=== PATIENT | male | born 1980 | race Caucasian/White ===

== ENCOUNTER 2016-07-02 07:22 | Emergency (ER) | payer OTHER ==
--- NOTE | 2016-07-02 07:48 | UC ---
Lower Extremity/Ankle HPI - HPI Summary HPI Summary: 5 DAYS OF LATERAL RIGHT FOOT PAIN AND MILD SWELLING. NO TRAUMA OR INJURY HE CAN REMEMBER. HAS BEEN UP ON HIS FEET A LOT OVER THE PAST WEEK. FEELS WORSE AT THE END OF THE DAY. - History of Current Complaint Chief Complaint: UCLowerExtremity Stated Complaint: FOOT INJURY Time Seen by Provider: 07/02/16 07:33 Hx Obtained From: Patient Onset/Duration: Gradual Onset, Lasting Days, Still Present Severity Initially: Moderate Severity Currently: Moderate Pain Intensity: 5 Pain Scale Used: 0-10 Numeric Aggravating Factor(s): Standing, Ambulation Alleviating Factor(s): Rest Able to Bear Weight: Yes - Allergies/Home Medications Allergies/Adverse Reactions: Allergies Allergy/AdvReac Type Severity Reaction Status Date / Time No Known Allergies Allergy Verified 09/30/14 22:01 Home Medications: Home Medications Carbidopa/Levodop 25/100 MG(*) [Sinemet 25/100 TAB(*)] 1 tab PO TID 07/02/16 [ History Confirmed 07/02/16] PMH/Surg Hx/FS Hx/Imm Hx - Additional Past Medical History Additional PMH: PARKINSONS Endocrine History Of: Denies: Diabetes, Thyroid Disease Cardiovascular History Of: Denies: Cardiac Disorders, Hypertension Respiratory History Of: Denies: COPD, Asthma GI/ History Of: Denies: Ulcer - Surgical History Surgical History: Yes Surgery Procedure, Year, and Place: right ankle fracture - Family History Known Family History: Negative: Hypertension Family History: HIGH CHOLESTEROL - Social History Alcohol Use: Weekly Substance Use Type: None Smoking Status (MU): Never Smoked Tobacco Review of Systems Constitutional: Negative Skin: Negative Respiratory: Negative Cardiovascular: Negative Gastrointestinal: Negative Musculoskeletal: Arthralgia, Edema All Other Systems Reviewed And Are Negative: Yes Physical Exam Triage Information Reviewed: Yes Appearance: Well-Appearing, No Pain Distress, Well-Nourished Vital Signs: Initial Vital Signs Temp 98.8 F 07/02/16 07:33 Pulse 97 07/02/16 07:33 Resp 18 07/02/16 07:33 BP 134/92 07/02/16 07:33 Pulse Ox 97 07/02/16 07:33 Vital Signs Reviewed: Yes Eyes: Positive: Conjunctiva Clear ENT: Positive: Hearing grossly normal Neck: Positive: Supple Respiratory: Positive: No respiratory distress, No accessory muscle use Cardiovascular: Positive: Pulses Normal - 2+ DP PULSES Abdomen Description: Positive: Soft Musculoskeletal: Positive: ROM Intact, Edema @ - MILD EDEMA RIGHT FOOT LATERALLY , Other: - TTP RIGHT FOOT OVER 4TH AND 5TH METATARSALS Neurological: Positive: Alert Psychological: Positive: Age Appropriate Behavior Skin: Negative: rashes Diagnostics - Radiology RIGHT FOOT XRAY Xray Interpretation: Positive (See Comments) - NONDISPLACED FRACTURE OF THE PROXIMAL FIFTH METATARSAL Radiology Interpretation Completed By: Radiologist Lower Extremity Course/Dx - Course Course Of Treatment: PT PUT IN CAM BOOT AND GIVEN CRUTCHES. NO WEIGHT BEARING. FOLLOW-UP ORTHO IN 3-5 DAYS - Differential Dx/Diagnosis Provider Diagnoses: NONDISPLACED FRACTURE OF THE PROXIMAL FIFTH METATARSAL Discharge - Discharge Plan Condition: Stable Disposition: HOME Patient Education Materials: Foot Fracture in Adults (ED) Referrals: Micheal Park MD [Medical Doctor] - 3 Days (FOLLOW-UP IN 3-5 DAYS) Justo Miller MD [Primary Care Provider] - If Needed Additional Instructions: YOU HAVE FRACTURED YOUR 5TH METATARSAL. NO WEIGHT BEARING UNTIL SEEN BY ORTHO. CALL TODAY FOR A FOLLOW-UP APPT IN 3-5 DAYS.
--- NOTE | 2016-07-02 08:08 | RAD ---
HISTORY: Lateral pain, right foot COMPARISONS: None VIEWS: 3, Frontal, lateral, and oblique views of the right foot FINDINGS: BONE DENSITY: Normal. BONES: There is a nondisplaced transverse fracture of the proximal fifth metatarsal JOINTS: There is no arthropathy. ALIGNMENT: There is no dislocation. SOFT TISSUES: Unremarkable. OTHER FINDINGS: None. IMPRESSION: NONDISPLACED FRACTURE OF THE PROXIMAL FIFTH METATARSAL
[2016-07-02 08:54] VITALS: BP 138/78
== END 2016-07-02 08:54 | disposition home or self-care (01) ==
LOC: UCEAST 07:22
DX: S92.354A Nondisplaced fracture of fifth metatarsal bone, right foot, initial encounter for closed fracture (principal); X58.XXXA Exposure to other specified factors, initial encounter; Y93.9 Activity, unspecified; Y92.9 Unspecified place or not applicable
CPT/HCPCS: 99211; G0463

== ENCOUNTER 2017-05-15 15:52 | Emergency (ER) | payer OTHER ==
[2017-05-15 16:20] VITALS: BP 127/59
--- NOTE | 2017-05-15 17:13 | UC ---
Abdominal Pain Male HPI - HPI Summary HPI Summary: 36 yo Wm c/o right upper back/flank tenderness x 3-4 days, remininscient of the usual renal colic pt had in the past. Pt has been stressed this week and not drinking enough water. Denies hematuria. f/c - History of Current Complaint Chief Complaint: UCBackPain Stated Complaint: BACK PAIN Time Seen by Provider: 05/15/17 16:45 Hx Obtained From: Patient Onset/Duration: Sudden Onset Severity Initially: Moderate Severity Currently: Moderate Pain Intensity: 4 - Allergies/Home Medications Allergies/Adverse Reactions: Allergies Allergy/AdvReac Type Severity Reaction Status Date / Time No Known Allergies Allergy Verified 05/15/17 16:03 PMH/Surg Hx/FS Hx/Imm Hx - Additional Past Medical History Additional PMH: parkinson's - Surgical History Surgical History: Yes Surgery Procedure, Year, and Place: right ankle fracture 1999 - Family History Known Family History: Negative: Hypertension Family History: HIGH CHOLESTEROL - Social History Alcohol Use: Weekly Substance Use Type: None Smoking Status (MU): Never Smoked Tobacco Review of Systems Constitutional: Negative Skin: Negative Eyes: Negative ENT: Negative Respiratory: Negative Cardiovascular: Negative Gastrointestinal: Negative Genitourinary: Negative Motor: Negative Neurovascular: Negative Musculoskeletal: Negative Neurological: Other - movement disorder secondary to Parkinson's more pronounced due to today's complaints per pt Psychological: Negative All Other Systems Reviewed And Are Negative: Yes Physical Exam Triage Information Reviewed: Yes Vital Signs: Initial Vital Signs Temp 36.3 C 05/15/17 16:05 Pulse 79 05/15/17 16:05 Resp 20 05/15/17 16:05 BP 127/59 05/15/17 16:05 Pulse Ox 98 05/15/17 16:05 Eye Exam: Normal ENT Exam: Normal Dental Exam: Normal Neck exam: Normal Neck: Positive: 1 Respiratory Exam: Normal Cardiovascular Exam: Normal Abdominal Exam: Normal Musculoskeletal Exam: Other - generalized hypertonic choreic movements Neurological Exam: Normal Psychological Exam: Normal Skin Exam: Normal Abd Pain Male Course/Dx - Course Course Of Treatment: UA neg, no blood, LE or nitrites - Differential Dx/Clinical Impression Provider Diagnoses: renal colic Discharge - Discharge Plan Condition: Stable Disposition: HOME Patient Education Materials: Renal Colic (ED) Referrals: Justo Miller MD [Primary Care Provider] - Additional Instructions: if flank pain worsens in spite of hydration and OTC analgesics, then go to ER for advanced imaging
== END 2017-05-15 17:10 | disposition home or self-care (01) ==
LOC: UCEAST 15:52
DX: N23 Unspecified renal colic (principal); G20 Parkinson's disease
CPT/HCPCS: 81003; 99211; G0463

== ENCOUNTER 2018-05-13 05:42 | Observation (INO) | payer OTHER ==
[2018-05-13] MEDS ORDERED: NS 0.9% 1000 ML** 1,000 ML IV ONE ×2 (06:09→07:36)
--- NOTE | 2018-05-13 06:10 | ED ---
Complex/Multi-Sys Presentation - HPI Summary HPI Summary: Pt. is a 37 y.o male who presents to the ER with a history of Parkinson's disease. Pt. follows with Dr. Redding at [place]. Pt. states that last night he fell asleep watching basketball and forgot to take his carbidopa/ levadopa. Pt. states while asleep he had vivid dreams and woke up thrashing. Pt. states this happened twice which is unusual for him. Pt. states he did strike his head on the door frame when on the floor but denies LOC. Pt. also notes he is going through a lot of stress right now and notes his divorce is finalized today. Pt. otherwise denies recent illness, cough, fever, V/D, urinary sxs. Sxs are moderate in severity. No current modifying factors. He does note right shoulder pain after playing baseball a few days ago. Denies any new injuries today. - History Of Current Complaint Chief Complaint: EDHeadInjury Time Seen by Provider: 05/13/18 05:47 Hx Obtained From: Patient - Allergies/Home Medications Allergies/Adverse Reactions: Allergies Allergy/AdvReac Type Severity Reaction Status Date / Time No Known Allergies Allergy Verified 05/13/18 09:26 Home Medications: Home Medications Carbidopa/Levodopa 36.25-145mg [Rytary ER 36.25 mg-145 mg Cap] 23.75 mg PO QID 05/13/18 [History Confirmed 05/13/18] Carbidopa/Levodopa ODT(NF) [Carbidopa/Levodopa ODT (NF)] 1 - 3 tab PO QID PRN [History Confirmed 05/13/18] Multivitamin with Minerals [One Daily Complete] 1 tab PO DAILY 05/13/18 [ History Confirmed 05/13/18] Rasagiline Mesylate 1 mg PO DAILY 05/13/18 [History Confirmed 05/13/18] Ropinirole HCl [Requip Xl] 16 mg PO DAILY 05/13/18 [History Confirmed 05/13/18] Rosuvastatin Calcium 10 mg PO DAILY 05/13/18 [History Confirmed 05/13/18] Tadalafil 10 - 20 mg PO DAILY PRN 05/13/18 [History Confirmed 05/13/18] PMH/Surg Hx/FS Hx/Imm Hx Previously Healthy: Yes Endocrine/Hematology History: Denies: Hx Diabetes, Hx Thyroid Disease Cardiovascular History: Denies: Hx Hypertension Respiratory History: Denies: Hx Asthma, Hx Chronic Obstructive Pulmonary Disease (COPD) GI History: Denies: Hx Ulcer - Surgical History Surgery Procedure, Year, and Place: right ankle fracture 1999 Infectious Disease History: No Infectious Disease History: Denies: Hx Hepatitis, Hx Human Immunodeficiency Virus (HIV), Traveled Outside the [place] in Last 30 Days - Family History Known Family History: Negative: Hypertension Family History: HIGH CHOLESTEROL - Social History Occupation: Employed Full-time Lives: Alone Alcohol Use: Weekly Substance Use Type: Reports: None Smoking Status (MU): Never Smoked Tobacco Review of Systems Constitutional: Negative Negative: Fever, Chills Eyes: Negative ENT: Negative Cardiovascular: Negative Respiratory: Negative Gastrointestinal: Negative Positive: Other - right shoulder pain Positive: Syncope - dyskinesia All Other Systems Reviewed And Are Negative: Yes Physical Exam Triage Information Reviewed: Yes Vital Signs On Initial Exam: Initial Vitals Temp Pulse Resp BP Pulse Ox 99.2 F 109 20 135/74 98 05/13/18 05:44 05/13/18 05:44 05/13/18 05:44 05/13/18 05:44 05/13/18 05:44 Vital Signs Reviewed: Yes Appearance: Positive: Well-Appearing - Pt. lying in bed in NAD. No dyskinesia Skin: Positive: Warm, Dry Head/Face: Positive: Normal Head/Face Inspection Eyes: Positive: Normal, EOMI ENT: Positive: Pharynx normal, TMs normal Neck: Positive: Supple, Nontender Respiratory/Lung Sounds: Positive: Clear to Auscultation, Breath Sounds Present Cardiovascular: Positive: Normal, RRR Musculoskeletal: Positive: Other - healing ecchymosis to bilateral LEs. Mild pain to anterior right shoulder with full ROM. Neurological: Positive: Normal, CN Intact II-III Psychiatric: Positive: Affect/Mood Appropriate Diagnostics - Vital Signs Vital Signs Temp Pulse Resp BP Pulse Ox 05/13/18 05:44 99.2 F 109 20 135/74 98 - Laboratory Result Diagrams: 05/13/18 06:25 05/13/18 06:24 Lab Statement: Any lab studies that have been ordered have been reviewed, and results considered in the medical decision making process. Complex Multi-Symp Course/Dx Course Of Treatment: Pt. presenting for worsening dyskinesia after missing dose of carbidopa/levodopa. Mildly tachycardic but VS otherwise normal. Will start pt. on IV fluids and check basic labs. Pt. took his med around 0700 here. ECG done at 0623 shows a sinus rhythm of 93bpm, normal axis, no ST elevation or depression. CBC shows mild leukocytosis of 12. CR elevatd at 1.36, BUN 30, GFR 58, AST 266. U/A was positive for RBCs and protein. 0735: CK was then ordered to evaluate for rhabdomyolysis. Pt. given 2 L NSS. CK came back at 14,276. Will admit for rhabdomyolysis and rehydration. Hospitalist consulted, Dr. Gutierrez , who accepts admission. He would like pt. started on 250cc/hour. CKMB 68.8, troponin 0.04. - Diagnoses Provider Diagnoses: Rhabdomyolysis, Parkinson disease, Acute kidney injury Discharge - Sign-Out/Discharge Documenting (check all that apply): Patient Departure Patient Received Moderate/Deep Sedation with Procedure: No - Discharge Plan Condition: Stable Disposition: ADMITTED TO [facility] - Billing Disposition and Condition Condition: STABLE Disposition: Admitted to [facility]
[2018-05-13 06:29] LABS: ABS Basophils 0 10^3/ul (0-0.2); ABS Eosinophils 0 10^3/ul (0-0.6); ABS Lymphocytes 0.8 10^3/ul (1.0-4.8); ABS Monocytes 0.8 10^3/ul (0-0.8); ABS Neutrophils 10.5 10^3/ul (1.5-7.7); ABS Nucleated RBC 0 10^3/ul; Eosinophil % 0.1 %; Hematocrit 44 % (42-52); Hemoglobin 14.3 g/dl (14.0-18.0); Lymphocyte % 6.3 %; Mean Corpuscular HGB Conc 33 g/dl (31-36); Mean Corpuscular Hemoglobin 29 pg (27-31); Mean Corpuscular Volume 88 fL (80-94); Mean Platelet Volume 9.4 fL (7.4-10.4); Nucleated Red Blood Cells % 0; Platelet Count 223 10^3/ul (150-450); Red Blood Count 4.98 10^6/ul (4.00-5.40); Red Cell Distribution Width 13 % (10.5-15); White Blood Count 12.1 10^3/ul (3.5-10.8)
[2018-05-13 06:46] LABS: Albumin 4.2 g/dL (3.2-5.2); Albumin/Globulin Ratio 1.6 (1-3); BUN/Creatinine Ratio 22.1 (8-20); EGFR Non-African American 58.6 (>60); Globulin 2.7 g/dL (2-4); Magnesium 2.2 mg/dL (1.9-2.7); Total Bilirubin 0.9 mg/dL (0.2-1.0); Total Protein 6.9 g/dL (6.4-8.9)
[2018-05-13 07:23] LABS: Urine Appearance Cloudy; Urine Bacteria Absent (Absent); Urine Bilirubin Negative (Negative); Urine Blood 2+ (Negative); Urine Color Amber; Urine Glucose Negative (Negative); Urine Ketones 1+ (Negative); Urine Nitrite Negative (Negative); Urine Protein 2+(100 mg/dL) (Negative); Urine Red Blood Cell 3+(>10/hpf) (Absent); Urine Specific Gravity 1.032 (1.010-1.030); Urine Urobilinogen Negative (Negative); Urine White Blood Cell Trace(0-5/hpf) (Absent)
[2018-05-13] MEDS ORDERED: NS 0.9% 250 ML* 250 ML IV ONE (08:43)
[2018-05-13 09:08] LABS: CKMB ng/mL 68.8 ng/mL (0.6-6.3)
[2018-05-13 09:14] LABS: Troponin I 0.04 ng/mL (<0.04)
[2018-05-13] MEDS ORDERED: Acetaminophen TAB* 325 MG PO PRN (10:04)
[2018-05-13] MEDS ORDERED: Ondansetron INJ* 2 MG/ML VIAL IV PRN (10:04)
[2018-05-13] MEDS ORDERED: LORazepam INJ* 2 MG/ML 1 ML VIAL IV PUSH ONE (10:17)
[2018-05-13 10:34] LABS: Phosphorus 2.4 mg/dL (2.5-5.0)
[2018-05-13] MEDS: NS 0.9% 1000 ML** 1,000 ML IV SCH ×3 (10:54→20:25)
--- NOTE | 2018-05-13 12:40 | HP ---
HISTORY AND PHYSICAL: DATE OF ADMISSION: 05/13/18 PRIMARY CARE PROVIDER: Dr. Justo Miller. MY ATTENDING WHILE IN THE HOSPITAL: Dr. Fab Gutierrez.* (DICTATED BY CHRISTIN SAHU) OUTPATIENT NEUROLOGIST: Dr. Redding in [facility] in [place]. CONSULTING NEUROLOGIST: Dr. Pancho Nance. CHIEF COMPLAINT: Dyskinesia. HISTORY OF PRESENT ILLNESS: Mr. Mohr is a 37-year-old male with past medical history significant only for Parkinson's and hyperlipidemia who presents to the emergency department because last night he fell asleep while watching a basketball game and missed his dose of Rytary. Patient at that time was rather dyskinetic and feels like he has been under quite a bit of stress, which usually exacerbates his underlying movement disorder with his Parkinson' s. Patient then that night had very vivid dreams where he felt like the heat in his apartment was way too high and he is usually able to, when he has episodes like this, soothe himself out of them, but he was unable to do so at this time. Patient was barely able to walk due to the severity of his dyskinesias. Patient over the last several days has not been drinking or eating well, has been under a lot of stress. His divorce is finalized today and his work, he feels, is very stressful for him. Patient has no other associated symptoms such as pain with urination, abdominal pain, or diarrhea. Patient has been making adequate amounts of urine. Patient did not pass out. Patient is not having any chest pain. Patient was eventually able to get to a fire alarm in his building and pull it because he had no other way of getting to the emergency department. Patient feels like he has been undertreated particularly at night for his Parkinson's because he feels like his dyskinesias are worse at that time. Patient this morning took his Rytary, Azilect, and ropinirole, which he felt did not help with his dyskinesia. Patient during the interview has significant dyskinesias still and is unable to lie still in the bed. Patient also feels significant cramping in his feet. Patient complains of significant foot cramping pain, which he has frequently. It is usually resolved with foot baths. Patient has not had any recent changes in his medication. Patient in the emergency department has creatine kinase of 14,000 and had slightly elevated creatinine. Due to these concerns, we were asked to evaluate the patient for admission to the hospital. PAST MEDICAL HISTORY: Parkinson disease and hyperlipidemia. MEDICATIONS: 1. Rytary 36.25/145 one tab p.o. 4 times a day. 2. Ropinirole XL 16 mg p.o. daily. 3. Rosuvastatin 10 mg p.o. daily. 4. Multivitamin 1 tab p.o. daily. 5. Azilect 2 mg p.o. daily. ALLERGIES: No known drug allergies. FAMILY HISTORY: Patient's parents are alive and well. Patient's grandparents on both sides of heart disease. SOCIAL HISTORY: Patient never smoked. Patient drinks occasional alcohol. Patient never used illicit drugs. 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 Patient is and has 1 child. Patient 's surrogate decision maker will be his now ex-, Brooke Mohr. REVIEW OF SYSTEMS: A 14-point review of systems was reviewed and is negative, except as above in the HPI. PHYSICAL EXAMINATION GENERAL: Patient is a 37-year-old male who appears stated age, sitting on the bed with constant thrashing movements. VITAL SIGNS: Temperature 99.4, pulse rate 104, respiratory rate 95% on room air , and blood pressure 117/64. HEENT: Head normocephalic and atraumatic. Sclerae anicteric. No conjunctival injection. Nasal mucosa moist. Oral mucosa moist. No oropharyngeal erythema, discharge, or exudate. NECK: Supple and nontender. No lymphadenopathy. No carotid bruits auscultated. No JVD. RESPIRATORY: Clear to auscultation bilaterally. No wheezes, rales, or rhonchi. Good air exchange bilaterally. CARDIAC: Regular rate and rhythm. No clicks, murmurs, gallops, or rubs. Pulses are 2+ in the dorsalis pedis, posterior tibialis and radial areas. ABDOMEN: Soft, nontender, and nondistended. Bowel sounds present and normoactive in all 4 quadrants. No hepatosplenomegaly. No abdominal bruits auscultated. No hepatojugular reflux. GENITOURINARY: No suprapubic or CVA tenderness. SKIN: Clean, dry, and intact. No rash. Bruising all over the patient's body. NEUROLOGIC: Cranial nerves II through XII intact. No focal deficits. Patient has constant thrashing motions in both his upper and lower extremities and his head which are able to be controlled with concentration and worse when patient is occupied. PSYCHIATRIC: Pleasant and cooperative. DIAGNOSTIC STUDIES/LAB DATA: Laboratory Data: White blood cell count 12.1, hemoglobin 14.3, platelet count 223. Sodium 140, potassium 4.0, chloride 105, carbon dioxide 25, anion gap 10, BUN 30, creatinine 1.36, glucose 177, calcium 9.0, magnesium 2.2, bilirubin 0.9, AST 266, ALT 20, alkaline phosphatase 86. Creatine kinase 14,276. CK-MB 68.8, troponin I of 0.04. Total protein 6.9, albumin 4.2, globulin 2.7. Urine gus, cloudy, pH of 9.0, specific gravity of 1.032, protein 2+, ketones 1+, blood 2+. Negative nitrite, leukocyte esterase, white blood cells; rbc's 3+, bacteria absent, hyaline cast present, glucose negative. STUDIES: EKG shows sinus tachycardia. No ST-segment abnormalities. Normal axis. Rate of 66, QTc of 436. No hypertrophy or enlargement. ASSESSMENT AND PLAN: Impression: Mr. Mohr is a 37-year-old male with past medical history significant for Parkinson's who is on significant treatment for this and has had worsening of his dyskinesia with a missed dose of his Parkinson disease medication last night. Patient is currently in severe rhabdomyolysis with acute kidney injury. Patient will be hydrated aggressively , monitored closely, and will be seen by neurology for consultation with regards to his medication management. 1. Rhabdomyolysis. Patient's creatine kinase is over 14,000. We will stop patient's statin. Patient has already received 2.5 L of fluid in the emergency department. Patient will be continued on fluids at 250 mL an hour. Patient's creatinine is 1.36; this will be monitored closely. Patient's most recent baseline is 1.1 from 2010. Patient's urine pH is at 5.0. We will monitor this as needed. If there is concern for worsening acute kidney injury, alkalization of the urine could occur at that time. Patient will be given Ativan at this time to help with his dyskinetic movements to help decrease the severity of his rhabdomyolysis. 2. Acute kidney injury. Management as above. We will monitor closely with a repeat creatinine this afternoon. 3. Parkinson disease. This patient will be discussed with neurology, who will see the patient in consultation. It is believed he might be overtreated for his Parkinson disease as he is having dyskinetic movements and not hypokinesis and tremor. Patient received his dose of Rytary, Azilect, and ropinirole this morning. We will decrease the dose of ropinirole, hold the Azilect, and hold Rytary until seen by neurology. We will attempt to obtain records from patient' s neurologist in [place]. It is likely the amount of patient's stress in his life is exacerbating his movement disorder. 4. DVT prophylaxis. Patient is at low risk. Patient will be treated with SCDs. 5. FEN. Patient will have fluids at 250 mL an hour and a heart-healthy diet without caffeine. DISPOSITION: Patient will be admitted for observation. TIME SPENT: Approximately 75 minutes were spent on the admission of this patient, 30 of which were spent [id number] with the patient obtaining history and physical and discussing treatment plan. The plan was discussed with my attending, Dr. Fab Gutierrez; he is in agreement. CHRISTIN SAHU [id number]/CPS #: [id number] MTDJose Luis
[2018-05-13] MEDS ORDERED: CARBIDOPA PO SCH (13:00)
[2018-05-13] MEDS ORDERED: LEVODOPA PO SCH (13:00)
[2018-05-13 15:52] LABS: EGFR African American 115.8 (>60); EGFR Non-African American 95.7 (>60)
[2018-05-13 15:54] LABS: Troponin I 0.03 ng/mL (<0.04)
[2018-05-13 16:32] LABS: TSH (Thyroid Stimulating Horm) 1.4 mcIU/mL (0.34-5.60)
[2018-05-13 16:34] LABS: Free T4 0.71 ng/dL (0.61-1.12)
--- NOTE | 2018-05-13 17:35 | CONS ---
NEUROLOGY CONSULTATION: DATE OF CONSULT: 05/13/18 REFERRING PHYSICIAN: CHRISTIN Diaz LOCATION: He is an inpatient and he is in room 411. CHIEF COMPLAINT: Parkinson disease, dyskinesias. HISTORY OF PRESENT ILLNESS: Lucien Mohr is a 37-year-old man who began having problems with rigidity and slowness of movement at about 29 years of age and was diagnosed with idiopathic Parkinson disease. He has been treated by a neurologist down in the [facility]. He takes Rytary containing 95 mg of levodopa 3 tablets 3 times a day, Sinemet 25/100 one tablet t.i.d. as a rescue medication as needed, rasagiline 1 mg a day, Requip extended release 16 mg per day. He was in his usual state of health yesterday and took his medication in the morning. He was going to watch a basketball game in the evening and fell asleep. He woke up with severe dyskinesias. He remembers waking up on the floor and trashing about. He remembers going to other condominium owners in his floor and asking for help to get some water. He could not get any response and became quite angry. This morning, he finally pulled the fire alarm and that was how he was able to get first responders come and bring him to the hospital. In the emergency room, he was noted to have an elevated creatine kinase at 14,276 and an elevated creatinine of 1.36. He was given IV fluids and admitted. He believes that he took his medications regularly, but then when he fell asleep did not take his evening dose. He thinks he probably took a dose early in the afternoon or late morning. He does get end of dose wearing off dyskinesias as well as peak dose dyskinesias. He says he has never had anything like this happen before. He had not been ill recently. Specifically, he has not had any nausea, vomiting, diarrhea, or other gastrointestinal problems. He felt extremely hot and overheated last night in his condominium. He says it was probably over 80 degrees. He does not think that he had anything to eat for dinner and he is pretty sure he was not keeping up on fluids. Other than falling asleep and not taking his evening medications as he normally would , he otherwise took his medicines as before. He has been on a statin and he has been on that for years. There has been no change in doses of any of his medications. PAST MEDICAL HISTORY: Notable for nephrolithiasis many years ago and early onset Parkinson disease, also hyperlipidemia. MEDICATIONS AT HOME: Consist of: 1. Rytary, 95 mg of levodopa, 3 tablets 3 times per day. 2. Sinemet 25/100 one t.i.d. p.r.n. rescue medication. 3. Requip extended release 16 mg once in each morning. 4. Rasagiline 1 mg p.o. daily. 5. Crestor 10 mg p.o. daily. ALLERGIES: He does not have any drug allergies. FAMILY HISTORY: Negative for Parkinson disease. He said he had genetic testing years ago at [facility] and it was uninformative. SOCIAL HISTORY: He works at [employer] in [place]. He has to do public speaking. He does not smoke. He has just finished going through a divorce. He lives alone. REVIEW OF SYSTEMS: Negative for recent intestinal problems. He lost upwards of 50 pounds since his diagnosis of Parkinson disease and perhaps 5 to 10 pounds in this past 6 months. He exercises regularly, playing baseball. He gets lots of bruises. His right shoulder has been hurting, which he attributes to baseball. There is no history of cardiac disease or diabetes. No recent sore throats or coughs. He is noted for about a year that soles of his feet are very dry and crack and are very painful. PHYSICAL EXAM: He is well nourished and looks a little bit dehydrated. He has numerous bruises of different ages all over his limbs. His feet are calloused with deep cracks in the right great toe, in the left plantar area. His skin is otherwise warm and dry. Temperature was 99.7 by temporal scan earlier, 97.9 last. Blood pressure 130/80 , heart rate in the 80s and seems regular. Respiratory rate is 20 and oxygen saturation is 100% on room air. Heart is in a regular rhythm and I do not hear any murmurs. Lungs are clear. There are no cervical bruits. Oral mucosa is reasonably moist and I do not see any oral trauma. Neurological exam: Pupils react equally from 3 to about 2 mm. Eye movements are full. Facial musculature is notable for a grade 1 to 2 hypomimia. There are no facial dyskinesias. Voice is a little bit soft, but quite clear. Facial musculature is otherwise symmetric. Motor exam revealed some tenderness of the limbs. He has good strength diffusely. There is a little bit of rigidity in the legs, but no cogwheeling. There is no tremor. Reflexes are quite brisk. I did not test his plantar responses because of the pain. He has generalized bradykinesia, but no dyskinesias. There is no rest tremor. He is alert and oriented, but quite sleepy from recent Ativan. He is able to give a pretty coherent history, but does not recall all the details of yesterday clearly. DIAGNOSTIC STUDIES/LAB DATA: Laboratory data reviewed includes the chemistry profile described in the history of present illness. CBC is notable for a mildly elevated white blood cell count at 12.1 with 10.5 absolute neutrophils indicating a mild left shift. Urinalysis is notable for elevated specific gravity at 1.032, 2+ protein, 1+ ketones, 2+ blood. There are 3+ red blood cells in his urine and trace white blood cells. IMPRESSION: Impression is that of rhabdomyolysis apparently from severe dyskinesias in a patient who fell asleep and did not take his Parkinson medications as intended. I am not sure what set this off otherwise. He does get end of those dyskinesias and so perhaps it was from withdrawal of his levodopa and other Parkinson medications. At this point, the emphasis should be monitoring renal function, keeping him very well hydrated. His CPK should continue to be checked as well as his creatinine. I will hold off on Rytary and instead just recommend using carbidopa/levodopa to prevent complete levodopa withdrawal. If he looks okay in the morning, we could reinstitute his Requip extended release. I would hold off on his rasagiline and certainly I would not administer his statins with his current rhabdomyolysis. I would recommend checking some other blood work for inflammatory myopathies to include an CRIS, Sjogren antibodies, and anti-Lucero-1 antibody. I do not think a sedimentation rate or CRP would be very useful here with his muscle breakdown and bruising. I would also recommend doing a renal ultrasound or some other imaging study to look at his kidneys because of the red blood cells suggesting he may have nephrolithiasis and to make sure he does not have hydronephrosis. I will continue to follow him along with you. [id number]/[facility] #: [id number] [facility]
[2018-05-13] MEDS: Carbidopa/Levodop 25/100 MG TAB(*) PO SCH (18:01)
[2018-05-13] MEDS ORDERED: Magnesium Sulfate CRYSTAL* 454 GM BOX TOPICAL PRN (18:10)
[2018-05-14] MEDS: Carbidopa/Levodop 25/100 MG TAB(*) PO SCH ×3 (00:06→12:21)
[2018-05-14] MEDS: NS 0.9% 1000 ML** 1,000 ML IV SCH ×3 (00:07→10:08)
[2018-05-14 07:22] LABS: ABS Basophils 0 10^3/ul (0-0.2); ABS Eosinophils 0 10^3/ul (0-0.6); ABS Lymphocytes 1.1 10^3/ul (1.0-4.8); ABS Monocytes 0.8 10^3/ul (0-0.8); ABS Nucleated RBC 0 10^3/ul; Eosinophil % 0.4 %; Hematocrit 37 % (42-52); Hemoglobin 12.2 g/dl (14.0-18.0); Lymphocyte % 14.3 %; Mean Corpuscular HGB Conc 33 g/dl (31-36); Mean Corpuscular Hemoglobin 29 pg (27-31); Mean Corpuscular Volume 89 fL (80-94); Nucleated Red Blood Cells % 0; Platelet Count 163 10^3/ul (150-450); Red Cell Distribution Width 14 % (10.5-15)
[2018-05-14 07:38] LABS: Albumin 3.3 g/dL (3.2-5.2); Albumin/Globulin Ratio 1.5 (1-3); BUN/Creatinine Ratio 14.7 (8-20); Calcium 7.9 mg/dL (8.6-10.3); EGFR African American 157.9 (>60); EGFR Non-African American 130.5 (>60); Globulin 2.2 g/dL (2-4); Magnesium 1.8 mg/dL (1.9-2.7); Phosphorus 1.5 mg/dL (2.5-5.0); Potassium 3.9 mmol/L (3.5-5.0); Total Bilirubin 0.5 mg/dL (0.2-1.0); Total Protein 5.5 g/dL (6.4-8.9)
[2018-05-14] MEDS ORDERED: Magnesium Sulfate 2 GM IV* 2 GM/50 ML BAG IVPB ONE (07:48)
[2018-05-14] MEDS ORDERED: Sodium Phosphate INJ* 15 MMOLE in NS 0.9% 250 ML* 250 ML IVPB ONE (07:48)
[2018-05-14] MEDS ORDERED: Calcium Gluconate INJ* 2 GM in NS 0.9% 100 ML* 100 ML IV ONE (07:52)
[2018-05-14] MEDS ORDERED: Rosuvastatin (NF) 10 MG TAB PO SCH (09:00)
[2018-05-14] MEDS ORDERED: RASAGILINE PO SCH (09:00)
[2018-05-14] MEDS ORDERED: Multivitamins/Minerals TAB PO SCH (09:00)
[2018-05-14] MEDS ORDERED: ROPINIROLE HCL PO SCH ×2 (09:00)
[2018-05-14 09:22] LABS: Barbiturates Urine Screen None Detected (None Detect); Benzodiazepine Urine Screen None Detected (None Detect); Urine Cannabinoids Screen None Detected (None Detect)
--- NOTE | 2018-05-14 12:26 | PN ---
Subjective Date of Service: 05/14/18 Interval History: Pt seen and examined. Meds and labs reviewed. CC: N/A ROS: Denied CHIN/dizziness, F/C, N/V, CP, SOB, increased cough, sputum production , abd pain, diarrhea, constipation, dysuria, myalgias, arthralgias, throat pain , and new skin lesions. The rest of the 14 point ROS are unremarkable. PHYSICAL EXAM: GEN APPEARANCE: Awake, not in acute distress HEENT: NC/AT, PERRLA, moist oral mucosa, (-) throat erythema NECK: Soft, supple, (-) cervical LAD, (-)JVD HEART: S1S2 WNL, RRR, No MRG CHEST: CTA, BL, GAE, No W/R/R ABD: Soft, ND/NT, NABS 4x Q EXT: No C/C/E SKIN: Warm to touch PSYCH: No active psychosis, hallucinations, depression, SI/HI Objective Active Medications: Acetaminophen (Tylenol Tab*) 650 mg PO Q6H PRN PRN Reason: FEVER/PAIN Carbidopa/Levodopa (Sinemet 25/100 Tab(*)) 2 tab PO Q6H [facility] Last Admin: 05/14/18 12:21 Dose: 2 tab Sodium Chloride (Ns 0.9% 1000 Ml) 1,000 mls @ 250 mls/hr IV PER RATE [facility] Last Admin: 05/14/18 10:08 Dose: 250 mls/hr Sodium Phosphate 15 mmole/ (Sodium Chloride) 255 mls @ 42 mls/hr IVPB ONCE ONE Stop: 05/14/18 13:45 Last Admin: 05/14/18 12:21 Dose: 42 mls/hr Magnesium Sulfate (Epsom Salt*) 1 applic TOPICAL BID PRN PRN Reason: FOOT PAIN Last Admin: 05/13/18 21:04 Dose: 1 applic Multivitamins/Minerals (Theragran/Minerals Tab*) 1 tab PO DAILY [facility] Last Admin: 05/14/18 08:35 Dose: 1 tab Ondansetron HCl (Zofran Inj*) 4 mg IV Q6H PRN PRN Reason: NAUSEA Vital Signs - 8 hr 05/14/18 06:36 Temperature 98.2 F Pulse Rate 67 Respiratory 18 Rate Blood Pressure 130/62 (mmHg) O2 Sat by Pulse 99 Oximetry Oxygen Devices in Use Now: None Result Diagrams: 05/14/18 07:08 05/14/18 07:08 Microbiology and Other Data: Microbiology 05/13/18 06:50 Urine Culture - Final Urine No Growth (<1,000 CFU/mL) Assess/Plan/Problems-Billing Assessment: - Patient Problems (1) Rhabdomyolysis Current Visit: Yes Status: Acute Code(s): M62.82 - RHABDOMYOLYSIS SNOMED Code(s): 915928020 Comment: -Likely from dyskinesia due to pt forgetting Parkinons meds? -Continue NS IVF at this time; no bicarb gtt given Calcium is already mildly low -Continue watchful waiting (2) TANYA (acute kidney injury) Current Visit: Yes Status: Acute Code(s): N17.9 - ACUTE KIDNEY FAILURE, UNSPECIFIED SNOMED Code(s): 34503176 Comment: -Resolved -Likely due to poor PO intake (3) Parkinson disease Current Visit: Yes Status: Acute Code(s): G20 - PARKINSON'S DISEASE SNOMED Code(s): 06090193 Comment: -Continue Carbidopa/Levodopa Status and Disposition: -Corrected Mag, phos, and [place]; will continue to follow -Possible D/C in AM
[2018-05-14 15:59] VITALS: BP 132/72
--- NOTE | 2018-05-14 20:34 | DS ---
CC: Dr. Fab Gutierrez; Dr. Shyla Hopson; Dr. Pancho Nance; Dr. Justo Miller DISCHARGE SUMMARY: DATE OF ADMISSION: DATE OF DISCHARGE: 05/14/18 DISCHARGE DIAGNOSES: Are as follows: 1. Rhabdomyolysis likely due to dyskinesia due to missing Parkinson's meds causing withdrawal from l evodopa. 2. Acute kidney injury, resolved; likely due to above. 3. History of Parkinson's disease. 4. History of hyperlipidemia. DISPOSITION: Home. CONDITION: Good. DISCHARGE MEDICATIONS: Are as follows: 1. Multivitamins 1 tab p.o. daily. 2. Rytary ER p.o. 4 times a day and rescue dose of carbidopa and levodopa. 3. Rasagiline 1 mg p.o. daily. 4. Ropinirole 16 mg p.o. q.h.s. 5. Tadalafil 10 to 20 mg p.o. daily. He is told to withhold his statins until risks and benefits can be further assessed by PCP at a later time. HISTORY OF PRESENT ILLNESS/HOSPITAL COURSE: The patient is a 37-year-old gentleman with hi story of nephrolithiasis and Parkinson's disease, who began having problems with rigidity and slownes s of movement about 29 years of age and was diagnosed with idiopathic Parkinson's disease. He mentio ns that he takes Rytary 3 times a day, however, while watching a basketball game the evening prior to his admission, he fell asleep and may have forgotten to take his Parkinson medications at that time. He woke up and he observed and felt to have severe dyskinesia. He was then brought to the ED and w as placed on carbidopa-levodopa 4 times a day and was seen by Dr. Nance in consultation who believe s that his rhabdomyolysis is likely due to dyskinesia due to withdrawal from levodopa. His CPK has c ontinued to improve to less than 5000 and 4914 today. The patient is able to tolerate his diet and a dequately nourish himself as well as replenish his fluid stores, hence we will discharge patient. Ri s electrolyte has been replenished prior to his discharge. He had been advised to followup and/or call his PCP within 3 days post discharge and to have his [employer] work redrawn on Thursday and to discuss results with his PCP. He was advised to go back to his usual home Parkinson's medications and to follow up with his Parkinson's specialist KARI and to follow up pratik Nance in 1 month. He was advised to continue to hold this statins for now and he was infor med that this can be readdressed by assessing his risks and benefits for it in the future. He was ad vised that if symptoms resume or develop new ones or feel unwell for any reason, to call his PCP [facility]. If his PCP cannot entertain him due to scheduling issues alone, he was advised to call [facility] if the issue is nonemergent. He was advised to call my office regarding any questions, co ncerns or further clarifications regarding his discharge plans and/or prescriptions and to take his m edications as prescribed. REVIEW OF SYSTEMS: The patient currently denies any headaches, dizziness, fevers, chills, nausea, vo miting, chest pain, shortness of breath, increased coughing and/or sputum production, abdominal pain, diarrhea, constipation, pain and/or increased frequency in urination, myalgias, arthralgias, throat pain or new skin lesions. The rest of the 14-point review of systems are otherwise unremarkable. PHYSICAL EXAMINATION: Shows the most recent vital signs of record with blood pressure of 130/62, 98. 2 degrees Fahrenheit, 67 beats per minute heart rate, 18 per minute respiratory rate, saturating at 9 9% on room air. General Appearance: The patient is awake, alert, and oriented x3, not in acute dist ress. HEENT: Normocephalic, atraumatic, PERRLA. Extraocular muscles are intact. Negative for icter us. Moist oral mucosa. Negative throat erythema. Neck is soft, supple with no cervical lymphadenop athy, no JVD. Heart: S1, S2 within normal limits. Regular rate and rhythm. No murmurs, rubs or ga llops. Chest: Clear to auscultation bilaterally. Good air entry. No wheezes, rales or rhonchi. A bdomen is soft, nondistended, nontender. Normoactive bowel sounds x4 quadrants. Extremities: No cy anosis, clubbing or edema. Psychiatric: No active psychosis, depression, suicidal or homicidal idea tion. Skin is warm to touch. TIME SPENT: The total time spent evaluating the patient, reviewing pertinent data and appropriate do cumentation was 1 hours and 5 minutes. [id number]/[facility] #: [id number]
[2018-05-15 13:56] LABS: SS-A/Ro Antibody <0.2 U; SS-B/La Antibody <0.2 U
[2018-05-15 15:56] LABS: JO-1 Antibody <0.2 U
== END 2018-05-14 16:50 | disposition home or self-care (01) | DRG 92 ==
LOC: ED 05:42 → MED 10:04 → OBSVTOIN 05-14 10:20 → INTOOBSV 05-14 10:20 → UNDODISIN 05-14 16:50
PROVIDERS: ADMIT Internal Medicine; ATTEND Student in an Organized Health Care Education/Training Program
DX: G24.9 Dystonia, unspecified (principal); M62.82 Rhabdomyolysis; N17.9 Acute kidney failure, unspecified; F15.93 Other stimulant use, unspecified with withdrawal; G20 Parkinson's disease; E78.5 Hyperlipidemia, unspecified; Z79.899 Other long term (current) drug therapy; Z82.49 Family history of ischemic heart disease and other diseases of the circulatory system
CPT/HCPCS: 36415; 76770; 80053; 80307; 81003; 81015; 82140; 82550; 82553; 82565; 83735; 84100; 84439; 84443; 84479; 84484; 85025; 86038; 86235; 87086; 93005; 99284; A9270-GY; G0378; J0610; J2060; J3475

== ENCOUNTER 2018-06-29 11:42 | Emergency (ER) | payer OTHER ==
[2018-06-29 12:39] VITALS: BP 142/81
--- NOTE | 2018-06-29 13:53 | UC ---
Back Pain HPI - History of Current Complaint Chief Complaint: UCBackPain Stated Complaint: LOWER BACK PAIN Time Seen by Provider: 06/29/18 13:51 Pain Intensity: 3 - Allergies/Home Medications Allergies/Adverse Reactions: Allergies Allergy/AdvReac Type Severity Reaction Status Date / Time No Known Allergies Allergy Verified 06/29/18 12:39 PMH/Surg Hx/FS Hx/Imm Hx - Surgical History Surgical History: Yes Surgery Procedure, Year, and Place: right ankle fracture 1999 - Family History Known Family History: Negative: Hypertension Family History: HIGH CHOLESTEROL - Social History Alcohol Use: Rare Substance Use Type: None Smoking Status (MU): Never Smoked Tobacco Physical Exam Vital Signs: Initial Vital Signs Temp 98.2 F 06/29/18 12:33 Pulse 67 06/29/18 12:33 Resp 18 06/29/18 12:33 BP 142/81 06/29/18 12:33 Pulse Ox 99 06/29/18 12:33 Discharge - Discharge Plan Referrals: Justo Miller MD [Primary Care Provider] -
--- NOTE | 2018-06-29 14:17 | UC ---
Back Pain HPI - HPI Summary HPI Summary: ONSET OF MILD LEFT FLANK PAIN EARLIER TODAY. WAS HOSPITALIZED WITH RHABDOMYOLYSIS ABOUT 6 WEEKS AGO AND WHEN THE PAIN STARTED HE BECAME CONCERNED ABOUT RECURRENT RHABDO. OVER THE PAST COUPLE OF HOURS HIS LEVEL OF DYSKINESIA HAS INCREASED. HE REPORTS THAT HE HAS BEEN COMPLIANT WITH HIS CARBIDOPA/ LEVODOPA 4 TIMES DAILY SINCE DISCHARGE FROM THE HOSPITAL. HAS BEEN TRYING TO STAY WELL-HYDRATED. DENIES ANY FEVER BUT SKIN IS DIAPHORETIC ON EXAM. PATIENT WITH LARGE AMPLITUDE WHOLE-BODY DYSKINESIAS. - History of Current Complaint Chief Complaint: UCBackPain Stated Complaint: LOWER BACK PAIN Time Seen by Provider: 06/29/18 13:51 Hx Obtained From: Patient Onset/Duration: Gradual Onset, Lasting Hours, Still Present Timing: Constant Severity Initially: Moderate Severity Currently: Moderate Pain Intensity: 3 Pain Scale Used: 0-10 Numeric Back Pain: Is Discrete @ - LEFT FLANK Character: Aching Aggravating Factor(s): Nothing Alleviating Factor(s): Nothing Associated Signs And Symptoms: Positive: Flank Pain - LEFT. Negative: Swelling , Redness, Bruising - Allergies/Home Medications Allergies/Adverse Reactions: Allergies Allergy/AdvReac Type Severity Reaction Status Date / Time No Known Allergies Allergy Verified 06/29/18 12:39 PMH/Surg Hx/FS Hx/Imm Hx Other Neurological History: PARKINSONS - Surgical History Surgical History: Yes Surgery Procedure, Year, and Place: right ankle fracture 1999 - Family History Known Family History: Negative: Hypertension Family History: HIGH CHOLESTEROL - Social History Alcohol Use: Rare Substance Use Type: None Smoking Status (MU): Never Smoked Tobacco Review of Systems All Other Systems Reviewed And Are Negative: Yes Constitutional: Negative: Fever, Chills Skin: Positive: Other - DIAPHORETIC Respiratory: Positive: Negative Cardiovascular: Positive: Negative Gastrointestinal: Positive: Negative Genitourinary: Positive: Other - LEFT FLANK PAIN Motor: Positive: Other - WHOLE BODY DYSKINESIS Musculoskeletal: Negative: Arthralgia, Edema Physical Exam Triage Information Reviewed: Yes Appearance: No Pain Distress, Well-Nourished, Other: - LARGE AMPLITUDE WHOLE BODY DYSKINESIS Vital Signs: Initial Vital Signs Temp 98.2 F 06/29/18 12:33 Pulse 67 06/29/18 12:33 Resp 18 06/29/18 12:33 BP 142/81 06/29/18 12:33 Pulse Ox 99 06/29/18 12:33 Laboratory Tests 06/29/18 12:47 POC Urine Color Luli POC Urine Clarity Clear POC Urine pH 5.5 POC Ur Specif [place] >= 1.030 POC Urine Protein 2+ A POC Ur Glucose (UA) Negative POC Urine Ketones 1+ A POC Urine Blood 2+ A POC Urine Nitrite Negative POC Urine Bilirubin 1+ A POC Urine Urobilinogen 1.0 POC U Leukocyte Esteras Negative Vital Signs Reviewed: Yes Eyes: Positive: Conjunctiva Clear ENT: Positive: Hearing grossly normal Neck: Positive: Supple Respiratory: Positive: No respiratory distress, No accessory muscle use Cardiovascular: Positive: Brisk Capillary Refill Abdomen Description: Positive: Nontender. Negative: CVA Tenderness (R), CVA Tenderness (L), Distended, Guarding Musculoskeletal: Positive: No Edema, Other: - LARGE AMPLITUDE WHOLE BODY DYSKINESIS Neurological: Positive: Alert Psychological: Positive: Age Appropriate Behavior Skin: Positive: Other - DIAPHORETIC Back Pain Course/Dx - Course Course Of Treatment: PT IS CONCERNED ABOUT RECURRENT RHABDO. I AGREE HE NEEDS TO BE EVALUATED FOR THIS. UNFORTUNATELY WE DO NOT HAVE THE RESOURCES AVAILABLE TO DO THIS IN THE . PT TO GO TO [facility]. PT OFFERED TRANSPORT TO THE ED BY AMBULANCE BUT DECLINES. ADVISED THAT BY NOT TRAVELING IN A MONITORED SETTING HE COULD BE RISKING WORSENING OF HIS CONDITION THAT COULD POSE A THREAT TO HIS LIFE, HEALTH AND MEDICAL SAFETY. HE VERBALIZES UNDERSTANDING AND CONTINUES TO DECLINE AMBULANCE TRANSFER. - Differential Dx/Diagnosis Provider Diagnosis: Back pain, Dyskinesia due to Parkinson's disease - Physician Notifications Discussed Care With: Jewel Brown - TO [facility] BY PRIVATE CAR Time Discussed With Above Provider: 14:10 Instructed by Provider To: MD Will See In ED Discharge - Sign-Out/Discharge Documenting (check all that apply): Patient Departure All imaging exams completed and their final reports reviewed: No Studies - Discharge Plan Condition: Stable Disposition: TRANS HIGHER LVL OF CARE FAC Referrals: Justo Miller MD [Primary Care Provider] - If Needed Additional Instructions: I AGREE WITH YOUR CONCERN ABOUT RECURRENT RHABDO. GO DIRECTLY TO THE [facility] FROM HERE FOR FURTHER EVALUATION. YOU HAVE DECLINED TRANSFER TO THE ED BY AMBULANCE. BE ADVISED THAT BY NOT TRAVELING IN A MONITORED SETTING YOU COULD BE RISKING WORSENING OF YOUR CONDITION THAT COULD POSE A THREAT TO YOUR LIFE, HEALTH AND MEDICAL SAFETY. - Billing Disposition and Condition Condition: STABLE Disposition: Trans Higher Lvl of Care Fac
== END 2018-06-29 14:31 | disposition short-term general hospital (02) ==
LOC: UCEAST 11:42
DX: R10.9 Unspecified abdominal pain (principal); G24.9 Dystonia, unspecified; G20 Parkinson's disease; I10 Essential (primary) hypertension
CPT/HCPCS: 81003; 99212; G0463

== ENCOUNTER 2018-12-12 05:11 | Observation (INO) | payer OTHER ==
--- OUTSIDE RECORDS SUMMARY | 2018-12-12 05:20 | XMS REPORT | Continuity of Care Document ---
:1980 External Reference #:[id number] Author Name Sofie Rodriguez NP (transmitted by agent of provider Jasmin Astorga) Address [address], [address] [place] [address] Care Team Providers Name Role Phone Justo Miller MD - Family Care Team Information Manager Universal [phone] Medicine Problems Active Problems Provider Date Strain of rotator cuff capsule Sofie Mendoza M.D. Onset: 10/12/2014 Social History Type Date Description Comments Sex Unknown ETOH Use Denies alcohol use Tobacco Use Start: Unknown Patient has never smoked Recreational Drug Use Never Used Drugs Smoking Status Reviewed: 08/27/18 Patient has never smoked Exercise Type/Frequency Exercises regularly Allergies, Adverse Reactions, Alerts Description No Known Drug Allergies Medications Active Medications SIG Qnty Indications Ordering Provider Date Multivitamins 1 po qd 30tabs Unknown Tablets Requip daily Unknown 16mg Tablets Carbidopa-Levodopa 1 by mouth Unknown 25-100mg three times a Tablets day Rasagiline Mesylate Unknown 1mg Tablets Ropinirole HCL ER Unknown 8mg Tablets ER 24HR Immunizations CPT Code Status Date Vaccine Lot # [id number] Given 05/16/2010 Tdap - Tetanus/Diptheria/Acellular Pertussis [id number] Vital Signs Date Vital Result Comment 11/17/2018 10:39am Height 66 inches 5'6" Weight 165.00 lb Per pt, this morning Heart Rate 76 /min BP Systolic Sitting 104 mmHg Rue reg cuff BP Diastolic Sitting 74 mmHg Rue reg cuff Respiratory Rate 16 /min O2 % BldC Oximetry 98 % On Ra BMI (Body Mass Index) 26.6 kg/m2 08/27/2018 8:21am Height 66 inches 5'6" Weight 168.38 lb Heart Rate 72 /min BP Systolic Sitting 102 mmHg Lue regular cuff BP Diastolic Sitting 62 mmHg Lue regular cuff Respiratory Rate 12 /min O2 % BldC Oximetry 95 % BMI (Body Mass Index) 27.2 kg/m2 Results Description No Information Available Procedures Date Code Description Status 08/12/2018 47050 Sleep Study Unattended,HRT Rate,Oxygen Sat,Resp Completed Effort/Airflow Medical Devices Description No Information Available Encounters Type Date Location Provider Dx Diagnosis Office Visit 11/17/2018 Pulmonology And Sofie G47.33 Obstructive sleep 10:00a [facility] apnea (adult) [facility] (pediatric) Office Visit 08/27/2018 Pulmonology And Sofie G47.33 Obstructive sleep 8:30a [facility] apnea (adult) [facility] (pediatric) Office Visit 08/12/2018 Pulmonology And Pamela Post, R06.83 Snoring 7:30a [facility] R53.83 Other fatigue Assessments Date Code Description Provider 11/17/2018 G47.33 Obstructive sleep apnea (adult) (pediatric) Sofie Rodriguez NP 08/27/2018 G47.33 Obstructive sleep apnea (adult) (pediatric) Sofie Rodriguez NP 08/12/2018 G47.33 Obstructive sleep apnea (adult) (pediatric) Pamela Post MD 08/12/2018 R06.83 Snoring Pamela Post MD 08/12/2018 R53.83 Other fatigue Pamela Post MD Plan of Treatment Future Appointment(s):12/23/2018 2:00 pm - Manuel Mccloud M.D. at [facility]11/17/2018 - Sofie Rodriguez NPG47.33 Obstructive sleep apnea (adult) (pediatric)New Orders:[facility], Ordered: Follow up:3 monthsRecommendations:Try using the new CPAP mask which does not touch the bridge of your nose. If you have difficulty with your equipment, or need to replace your mask or hoses, please contact your homecare agency. If you have any further questions, please call the [facility] at If you have any sleepiness while driving you MUST avoid operating a vehicle or machinery. If you feel tired while driving hook puller and take a nap or switch drivers. If you know you are sleepy and need to go somewhere, arrange for a ride or use public transportation. It is very important to not risk your safety or the safety of others. Functional Status Description No Information Available Mental Status Description No Information Available Referrals Description No Information Available
[2018-12-12] MEDS ORDERED: NS 0.9% 1000 ML** 1,000 ML IV ONE (05:52)
--- NOTE | 2018-12-12 05:55 | ED ---
Throat Pain/Nasal Congestion - HPI Summary HPI Summary: Patient is a 38-year-old male who presents emergency department for swelling under his chin 2-3 days. Patient states he believes he had a small pimple his chin and a small red area to his chin. Patient states that he noticed fullness under his chin. Denies such symptoms of fever, chills, dental pain, sore throat , vomiting, coughing. Past medical history Parkinson's disease. Symptoms are moderate in severity. No current modifying factors. Denies difficulty breathing and swallowing solids or liquids. - History of Current Complaint Chief Complaint: EDThroatPain Time Seen by Provider: 12/12/18 05:39 Hx Obtained From: Patient - Allergies/Home Medications Allergies/Adverse Reactions: Allergies Allergy/AdvReac Type Severity Reaction Status Date / Time No Known Allergies Allergy Verified 12/12/18 05:15 PMH/Surg Hx/FS Hx/Imm Hx Previously Healthy: Yes Endocrine/Hematology History: Denies: Hx Diabetes, Hx Thyroid Disease Cardiovascular History: Denies: Hx Hypertension Respiratory History: Denies: Hx Asthma, Hx Chronic Obstructive Pulmonary Disease (COPD) GI History: Denies: Hx Ulcer Sensory History: Reports: Hx Contacts or Glasses Denies: Hx Cataracts, Hx Hearing Aid Opthamlomology History: Reports: Hx Contacts or Glasses Denies: Hx Cataracts Neurological History: Reports: Other Neuro Impairments/Disorders - parkinsons - Surgical History Surgery Procedure, Year, and Place: right ankle fracture 1999 Infectious Disease History: No Infectious Disease History: Denies: Hx Hepatitis, Hx Human Immunodeficiency Virus (HIV), Traveled Outside the [place] in Last 30 Days - Family History Known Family History: Positive: Non-Contributory Negative: Hypertension Family History: HIGH CHOLESTEROL - Social History Occupation: Employed Full-time Lives: With Family Alcohol Use: Rare Hx Substance Use: No Substance Use Type: Reports: None Hx Tobacco Use: No Smoking Status (MU): Never Smoked Tobacco Review of Systems Constitutional: Negative Negative: Fever, Chills ENT: Negative Positive: Other - submandibular edema. Negative: Dental Pain, Sore Throat Cardiovascular: Negative Respiratory: Negative Gastrointestinal: Negative Negative: Abdominal Pain, Vomiting, Diarrhea Positive: Other - redness to chin Neurological: Negative All Other Systems Reviewed And Are Negative: Yes Physical Exam Triage Information Reviewed: Yes Vital Signs On Initial Exam: Initial Vitals Temp Pulse Resp BP Pulse Ox 98.3 F 97 22 142/104 98 12/12/18 05:12 12/12/18 05:12 12/12/18 05:12 12/12/18 05:12 12/12/18 05:12 Vital Signs Reviewed: Yes Appearance: Positive: Well-Appearing - Pt. sitting on bed in NAD. Skin: Positive: Warm, Dry Head/Face: Positive: Other - Small area of erythema over chin. Eyes: Positive: Normal, EOMI, MARYANN, Conjunctiva Clear ENT: Positive: Pharyngeal erythema, TMs normal. Negative: Tonsillar swelling, Tonsillar exudate Dental: Negative: Percussion Tenderness @, Gross Decay/Caries @, Abscess @ Neck: Positive: Supple, Other: - Fullness and induration bilaterally to the submandibular space. Respiratory/Lung Sounds: Positive: Clear to Auscultation, Breath Sounds Present Cardiovascular: Positive: Normal, RRR Abdomen Description: Positive: Nontender, Soft Neurological: Positive: Normal, CN Intact II-III Psychiatric: Positive: Affect/Mood Appropriate Diagnostics - Vital Signs Vital Signs Temp Pulse Resp BP Pulse Ox 12/12/18 05:12 98.3 F 97 22 142/104 98 - Laboratory Result Diagrams: 12/12/18 06:30 12/12/18 06:30 Lab Statement: Any lab studies that have been ordered have been reviewed, and results considered in the medical decision making process. EENT Course/Dx - Course Course Of Treatment: Pt. presenting with painful swelling to submandibular region. No airway compromise. Afebrile and overall well appearing. Concerned for abscess/deep space infection. Will obtain labs and soft tissue ct for further revaluation. Labs show mild leukocytosis. CT neck per radiology: IMPRESSION: 1. Imaging features are suggestive of cellulitis involving the submandibular and. overlying superficial soft tissues. There is no significant inflammation/edema in the. sublingual space. The airway remains patent. The mildly enlarged bilateral cervical level. I and II lymph nodes are likely reactive. Close clinical follow-up is recommended. 2. No untreated dental or periodontal disease. Will start pt. on IV zosyn. Given location of cellulitis hospitalist contacted for admission. Case discussed with Dr. Tipton and he will accept pt. for admission. Results discussed with pt. He now remembers that he recently started foster two cats that sleep close to his face and was possibly scratched by one. - Differential Diagnoses Differential Diagnoses: Cellulitis, Dental Abscess, Periodontic Abscess, Pharyngitis - Diagnoses Provider Diagnoses: Cellulitis of submandibular region Discharge ED - Sign-Out/Discharge Documenting (check all that apply): Patient Departure Patient Received Moderate/Deep Sedation with Procedure: No - Discharge Plan Condition: Stable Disposition: ADMITTED TO [facility] Referrals: Justo Miller MD [Primary Care Provider] - - Billing Disposition and Condition Condition: STABLE Disposition: Admitted to [facility]
[2018-12-12 06:56] LABS: ABS Eosinophils 0.2 10^3/ul (0-0.6); ABS Lymphocytes 2.1 10^3/ul (1.0-4.8); ABS Monocytes 1.2 10^3/ul (0-0.8); ABS Neutrophils 8.9 10^3/ul (1.5-7.7); Eosinophil % 1.5 %; Hematocrit 40 % (42-52); Hemoglobin 13.5 g/dL (14.0-18.0); Mean Corpuscular HGB Conc 34 g/dL (31-36); Mean Corpuscular Hemoglobin 30 pg (27-31); Mean Corpuscular Volume 88 fL (80-94); Mean Platelet Volume 9.1 fL (7.4-10.4); Platelet Count 243 10^3/uL (150-450); Red Blood Count 4.56 10^6 /uL (4.18-5.48); Red Cell Distribution Width 13 % (10-15); White Blood Count 12.4 10^3/uL (3.5-10.8)
[2018-12-12 06:57] LABS: Albumin 3.8 g/dL (3.2-5.2); Albumin/Globulin Ratio 1.6 (1-3); BUN/Creatinine Ratio 23.3 (8-20); C Reactive Protein 11.24 mg/L (<8.01); Calcium 8.7 mg/dL (8.6-10.3); EGFR African American 113.7 (>60); EGFR Non-African American 93.9 (>60); Globulin 2.4 g/dL (2-4); Potassium 3.6 mmol/L (3.5-5.0); Total Bilirubin 0.4 mg/dL (0.2-1.0); Total Protein 6.2 g/dL (6.4-8.9)
[2018-12-12] MEDS ORDERED: Iohexol 300* (CONTRAST) 10 ML SDV IV ONE (07:14)
[2018-12-12] MEDS ORDERED: Piperacillin/Tazobac ADVAN(*) 3.375 GM in NS 0.9% 100 ML* 100 ML IVPB ONE ×2 (08:28→15:00)
[2018-12-12] MEDS ORDERED: NS 0.9% 100 ML* 100 ML ONE (08:45)
[2018-12-12] MEDS ORDERED: Acetaminophen TAB* 325 MG PO PRN (08:49)
[2018-12-12] MEDS ORDERED: Carbidopa/Levodopa ODT(NF) TAB.ODT 25/100 PO PRN ×2 (08:50→08:52)
[2018-12-12] MEDS ORDERED: CARBIDOPA PO SCH ×2 (09:00→13:00)
[2018-12-12] MEDS ORDERED: LEVODOPA PO SCH ×2 (09:00→13:00)
[2018-12-12] MEDS ORDERED: Zosyn per Pharmacy* NOTE FOLLOW UP SCH (09:00)
--- NOTE | 2018-12-12 10:24 | HP ---
History of Present Illness - History of Present Illness Reason for Visit: neck swelling History of Present Illness: CC: Neck swelling HPI: Mr Mohr is a 38 year old man with early-onset Parkinsons disease. He noted some swelling under his chin 2 day prior to admission. Yesterday this swelling worsened, but he did not note any major pain or fevers. He feels the area is tender. He denies any recent dental issues, no open areas on the skin are noted. He denies dyspnea. He was reading about neck infections overnight and he became concerned, came to the ER early this morning.. His Parkinsons was diagnosed about 10 years ago in [facility]. He was admitted once to this hospital in Apr of this year with rhabdomyolysis thought due to statin therapy. The Crestor was stopped and he has been on a better diet and exercising regularly. PCP: Paul - Past Medical History Cardiac: Hyperlipidemia BUSINESS DIRECTOR: Other - Parkinsons Disease dx age 28 - Past Surgical History Past Surgical History: None - Past Family History Family History: CAD - grandparents on both sides, Other - mother and father alive and well - Past Social History Smoke: No Occupation: asst bob of communication at Alcohol: Occassional Drugs: None Lives: Alone - has girlfriend, is , one daughter age 8 Review of Systems - Measurements Intake and Output: Intake and Output Last 24 Hours 12/10/18 12/11/18 12/12/18 12/13/18 06:59 06:59 06:59 06:59 Weight 76.204 kg 76.204 kg - Review of Systems General Comments: fostering 2 cats with daughter, no scratches Constitutional Symptoms: Negative: Weight Gain, Weight Loss, Fever Dermatology: Positive: Other - note acne on chin in last week HEENT: Negative: Dental Problems Eyes: Positive: Normal Thyroid: Positive: Normal Pulmonary: Positive: Normal Cardiology: Positive: Normal Gastroenterology: Positive: Normal Genital - Urinary: Positive: Normal Genitourinary - Male: Negative: Prostatism Musculoskeletal: Negative: Joint Pain Endocrinology: Positive: Normal Neurology: Positive: Normal Psychiatry: Positive: Normal Allergic/Immunologic: Negative: Hx HIV, Immunocompromise Objective Active Medications: Home Meds Acetaminophen (Tylenol Tab*) 650 mg PO Q4H PRN PRN Reason: FEVER/HEADACHE Carbidopa/Levodopa (Rytary Er 23.75 Mg-95 Mg Cap) 1 each PO QID [facility] Carbidopa/Levodopa (Carbidopa/Levodopa Odt (Nf)) 1 tab PO QID PRN PRN Reason: mild stiffness Carbidopa/Levodopa (Carbidopa/Levodopa Odt (Nf)) 2 tab PO QID PRN PRN Reason: moderate stiffness Piperacillin Sod/Tazobactam (Sod 3.375 gm/ Sodium Chloride) 100 mls @ 25 mls/ hr IVPB Q8H [facility] Non-Formulary Medication (Ropinirole Hcl [Requip Xl]) 16 mg PO DAILY [facility] Pharmacy Consult (Zosyn Per Pharmacy*) 1 note FOLLOW UP .ZOSYN PER PHARMACY [facility] Rasagiline (Azilect (Nf)) 1 mg PO DAILY [facility] Vital Signs - 8 hr 12/12/18 12/12/18 12/12/18 05:12 06:01 06:05 Temperature 36.8 C Pulse Rate 97 96 89 Respiratory 22 Rate Blood Pressure 142/104 112/57 (mmHg) O2 Sat by Pulse 98 95 95 Oximetry 12/12/18 12/12/18 12/12/18 07:00 07:02 08:00 Temperature Pulse Rate 81 84 79 Respiratory Rate Blood Pressure 127/74 143/72 (mmHg) O2 Sat by Pulse 98 99 97 Oximetry 12/12/18 12/12/18 12/12/18 08:01 08:29 08:59 Temperature Pulse Rate 78 80 Respiratory Rate Blood Pressure 132/75 132/84 (mmHg) O2 Sat by Pulse 98 94 Oximetry 12/12/18 12/12/18 12/12/18 09:00 09:29 10:22 Temperature 36.9 C Pulse Rate 78 82 82 Respiratory 16 Rate Blood Pressure 145/111 132/84 (mmHg) O2 Sat by Pulse 96 98 98 Oximetry Appearance: alert, no distress Eyes: No Scleral Icterus Ears/Nose/Mouth/Throat: NL Teeth, Lips, Gums Neck: Trachea Midline, No Thyroid Enlargement, Masses, - - edema and induration in entire submental area, non tender, no open areas, mild erythema Respiratory: Symmetrical Chest Expansion and Respiratory Effort, Clear to Auscultation Cardiovascular: NL Sounds; No Murmurs; No JVD, RRR Abdominal: NL Sounds; No Tenderness; No Distention, No Hepatosplenomegaly Lymphatic: No Cervical Adenopathy, No Axillary Adenopathy Extremities: No Edema Skin: No Rash or Ulcers Neurological: Alert and Oriented x 3, NL Sensation, - - mild akithesia type movements Lines/Tubes/Other Access: Clean, Dry and Intact Peripheral IV Nutrition: Taking PO's Result Diagrams: 12/12/18 06:30 12/12/18 06:30 Additional Lab and Data: Laboratory Tests 12/12/18 06:30 Glucose 108 H Calcium 8.7 AST 32 ALT 5 L C-Reactive Protein 11.24 H Total Protein 6.2 L Albumin 3.8 Diagnostic Imaging: CT neck: cellulitis in submandibular space, no abscess, mild cervical lymphadenitis Assess/Plan/Problems-Billing Assessment: 38 year old with Parkinsons, no immunosuppression, presenting with neck swelling , differential includes cellulitis, vs Fidel's angina - Patient Problems (1) Fidel's angina Current Visit: Yes Status: Acute Priority: High Code(s): K12.2 - CELLULITIS AND ABSCESS OF MOUTH SNOMED Code(s): 518392533 Comment: -Reviewed CT and exam with Dr. Lindquist. -No extension into submaxillary space, no fever, WBC, looks more like typical cellulitis -Will cover staph/strep w/ IV Zosyn, and observe overnight. -If doing well tomorrow, can go home w/ PO Augmentin. (2) Parkinson disease Current Visit: No Status: Chronic Priority: Medium Code(s): G20 - PARKINSON'S DISEASE SNOMED Code(s): 87210174 Comment: -Continue Carbidopa/Levodopa at home doses standing and PRN (3) DVT prophylaxis Current Visit: Yes Status: Acute Priority: Low Code(s): Z29.9 - ENCOUNTER FOR PROPHYLACTIC MEASURES, UNSPECIFIED SNOMED Code(s): 372964607 Comment: -Low risk, ambulatory Status and Disposition: observation
[2018-12-12] MEDS ORDERED: CARBIDOPA LEVO PO PRN (12:00)
[2018-12-12] MEDS: ROPINIROLE 8 MG PO SCH (12:02)
[2018-12-12] MEDS: RASAGILINE 1 MG PO SCH (12:09)
[2018-12-12] MEDS: ZOSYN 3.375 GM Q8H per EXTENDED INFUSION IVPB SCH ×4 (13:05→19:56)
[2018-12-12] MEDS: LEVODOPA PO SCH ×3 (13:11→19:58)
[2018-12-12] MEDS: CARBIDOPA PO SCH ×3 (13:11→19:58)
[2018-12-12] MEDS: CARBIDOPA LEVO PO PRN ×2 (13:12→19:55)
[2018-12-13 04:51] LABS: ABS Eosinophils 0.4 10^3/ul (0-0.6); ABS Lymphocytes 2.2 10^3/ul (1.0-4.8); ABS Monocytes 1.1 10^3/ul (0-0.8); ABS Neutrophils 8.2 10^3/ul (1.5-7.7); Eosinophil % 3.5 %; Hematocrit 45 % (42-52); Hemoglobin 14.9 g/dL (14.0-18.0); Lymphocyte % 18.3 %; Mean Corpuscular HGB Conc 33 g/dL (31-36); Mean Corpuscular Hemoglobin 30 pg (27-31); Mean Corpuscular Volume 88 fL (80-94); Mean Platelet Volume 9.1 fL (7.4-10.4); Platelet Count 229 10^3/uL (150-450); Red Blood Count 5.06 10^6 /uL (4.18-5.48); Red Cell Distribution Width 14 % (10-15); White Blood Count 11.9 10^3/uL (3.5-10.8)
[2018-12-13 05:12] LABS: C Reactive Protein 53.39 mg/L (<8.01); Calcium 8.8 mg/dL (8.6-10.3); EGFR African American 100.7 (>60); EGFR Non-African American 83.2 (>60)
[2018-12-13] MEDS: ZOSYN 3.375 GM Q8H per EXTENDED INFUSION IVPB SCH ×2 (05:28)
[2018-12-13] MEDS: RASAGILINE 1 MG PO SCH (09:02)
[2018-12-13] MEDS: ROPINIROLE 8 MG PO SCH (09:02)
[2018-12-13] MEDS: LEVODOPA PO SCH (09:06)
[2018-12-13] MEDS: CARBIDOPA PO SCH (09:06)
[2018-12-13] MEDS ORDERED: CMC:Rasagiline (NF) 1 MG TAB PO SCH (11:00)
[2018-12-13 12:32] VITALS: BP 147/90
--- NOTE | 2018-12-14 09:13 | DS ---
CC: Dr. Miller * DISCHARGE SUMMARY: DATE OF ADMISSION: 12/12/18 DATE OF DISCHARGE: 12/13/18 PRIMARY DIAGNOSES: 1. Cellulitis, submandibular area. 2. Fidel angina ruled out. SECONDARY DIAGNOSIS: Early-onset Parkinson disease. MEDICATIONS ON DISCHARGE: 1. Augmentin 875 mg p.o. b.i.d. 2. Carbidopa/levodopa ODT 25/250 one to three tablets p.o. 4 times a day p.r.n. 3. Carbidopa/levodopa 23.75/95 (Rytary) 3 tablets p.o. 4 times a day. 4. Multivitamin 1 tab p.o. daily. 5. Rasagiline 1 mg p.o. daily. 6. Ropinirole ER 16 mg p.o. daily. 7. Tadalafil x20 mg p.o. as needed. 8. Acetaminophen as needed. CONSULTANTS: None. PROCEDURES: None. HOSPITAL COURSE: A 38-year-old man with history of early-onset Parkinson's was admitted to the ER with progressive swelling in his submandibular area without fever or airway problems. The patient had a neck CT that showed extensive subcutaneous inflammation in the submandibular and overlying superficial soft tissues with enlarged cervical lymph nodes. There was no significant inflammation in the sublingual space. There was no periodontal disease or history of recent dental problems. There was a concern initially about Fidel angina, and with reviewing the case with the ear, nose and throat doctor, this was not thought to be the case. The patient was admitted for observation and placed on intravenous Zosyn. He had improvement in the edema overnight and never had any pain to speak of. His initial white count was 12.4, white count on discharge was 11.9. Other lab tests were essentially normal, except for a C- reactive protein of 11.24, which reji to 53.39 on the day of discharge. The patient had no problem swallowing. No airway problems. DISPOSITION: Home. DISCHARGE INSTRUCTIONS: Follow up with Dr. Miller within 1 week. STATUS: Observation. CONDITION: Stable. [id number]/[facility] #: [id number] MTDD
== END 2018-12-13 13:44 | disposition home or self-care (01) ==
LOC: ED 05:11 → INTOOBSV 08:47 → MEDTELE 08:47
PROVIDERS: ADMIT Internal Medicine; ATTEND Internal Medicine
DX: K12.2 Cellulitis and abscess of mouth (principal); G20 Parkinson's disease; Z79.899 Other long term (current) drug therapy; R60.9 Edema, unspecified
CPT/HCPCS: 36415; 70491; 80048; 80053; 85025; 86140; 96361; 96365; 96366; 99284; A9270-GY; G0378; J2543; Q9967